=== PATIENT | female | born 1985 | race African-American/Black ===

== ENCOUNTER 2018-06-09 12:20 | Emergency (ER) | payer OTHER ==
[~2018-06-09] VITALS: Ht 170.2 cm; Wt 61.2 kg
[~2018-06-09 12:20] MED LIST: ACETAMINOPHEN-1 EAC1 PO; CLEOCIN HCL150 MG PO; NAPROSYN500 MG PO; NOHOMEMEDICATIONS; PRENATAL
[2018-06-09 13:23] LABS: URINE BLOOD NEGATIVE (Negative); URINE CLARITY CLOUDY; URINE COLOR YELLOW; URINE GLUCOSE-RANDOM* NEGATIVE (Negative); URINE KETONES 2+ (Negative); URINE NITRITE-REFLEX NEGATIVE (Negative); URINE PROTEIN (DIPSTICK) 1+ (Negative); URINE SPECIFIC GRAVITY >= 1.030 (1.005-1.035); URINE UROBILINOGEN 0.2 E.U./dl (0.2-1.0)
[2018-06-09 13:24] LABS: ICTOTEST (BILI CONFIRMATORY) Negative (Negative); URINE BILIRUBIN NEGATIVE (Negative); URINE LEUKOCYTES-REFLEX 1+ (Negative)
[2018-06-09 13:29] LABS: BACTERIA-REFLEX 1-9 Few /HPF (None Seen); CASTS None Seen /LPF (None Seen); CRYSTALS None Seen /LPF (None Seen); MUCUS 0-3 Light strn/LPF (None Seen); SQUAMOUS >10 Many /LPF (0-3); URINE RBC 0-2 Rare /HPF (0-2)
[2018-06-09] MEDS ORDERED: MACROBID 100 M100 M1 PO (13:37)
[2018-06-09] MEDS ORDERED: CEPACOL SORE T1 EAC8 PO (13:37)
[2018-06-09 13:51] VITALS: BP 106/68
== END 2018-06-09 13:53 | disposition home or self-care (01) ==
LOC: ER 12:20
PROVIDERS: Physician Assistant
DX: J02.0 Streptococcal pharyngitis (principal); N39.0 Urinary tract infection, site not specified; M79.10 Myalgia, unspecified site; R42 Dizziness and giddiness

== ENCOUNTER 2018-10-19 06:10 | Emergency (ER) | payer OTHER ==
[~2018-10-19] VITALS: Ht 170.2 cm; Wt 61.2 kg
[~2018-10-19 06:10] MED LIST changes: +CEPACOL SORE T1 EAC8 PO; +MACROBID 100 M100 M1 PO
[2018-10-19 06:26] VITALS: BP 120/57
[2018-10-19] MEDS ORDERED: BENADRYL25 MG PO (06:29)
[2018-10-19] MEDS ORDERED: MEDROLDOSEPACK PO (06:29)
== END 2018-10-19 06:48 | disposition home or self-care (01) ==
LOC: ER 06:10
DX: L23.9 Allergic contact dermatitis, unspecified cause (principal)